=== PATIENT | male | born 1965 | race Caucasian/White ===

== ENCOUNTER 2018-09-03 05:58 | Emergency (ER) | payer OTHER ==
[~2018-09-03] VITALS: Ht 175.3 cm; Wt 72.6 kg
[2018-09-03] MEDS ORDERED: Naprosyn500 MG PO (06:22)
[2018-09-03] MEDS ORDERED: Augmentin 875-1 EACH PO (06:22)
== END 2018-09-03 06:35 | disposition home or self-care (01) ==
LOC: ER 05:58
DX: K04.7 Periapical abscess without sinus (principal); F17.200 Nicotine dependence, unspecified, uncomplicated
CPT/HCPCS: 99283